=== PATIENT | female | born 1990 | race African-American/Black ===

== ENCOUNTER 2019-07-09 14:34 | Emergency (ER) | payer MEDICAID ==
[~2019-07-09] VITALS: Ht 152.4 cm; Wt 43.5 kg
[2019-07-09 14:51] VITALS: Ht 152.4 cm; Wt 43.5 kg
[2019-07-09 15:40] LABS: UA SPECIFIC GRAVITY >=1.030 (1.005-1.035); microscopic required? YES; urine erythrocyte 2+ (NEGATIVE)
[2019-07-09 15:43] LABS: PLATELET COUNT 419 x10^3mcL (130-400); RED CELL DISTRIBUTION WIDTH 20.1 % (11.5-14.5)
[2019-07-09 15:59] LABS: BAND NEUTROPHIL 1 % (0-10); BASOPHIL 0 % (0-2); MONOCYTE 7 % (0-7); SEGMENTED NEUTROPHILS 81 % (37-75); rbc morphology (normal/abnorm) ABNORMAL (NORMAL)
[2019-07-09 16:00] LABS: ALBUMIN 4.2 g/dL (3.4-5.0); ALKALINE PHOSPHATASE 37 U/L (46-116); ALT/SGPT 16 U/L (14-59); AST/SGOT 21 U/L (15-37); BILIRUBIN TOTAL 0.31 mg/dL (0.20-1.00); CARBON DIOXIDE 23.9 mmol/L (21-32); CHLORIDE SERUM 98 mmol/L (98-107); CREATININE SERUM 0.6 mg/dL (0.6-1.0); GFR1 > 60 mL/min; GLUCOSE SERUM 74 mg/dL (74-106); LIPASE 79 IU/L (73-393); POTASSIUM SERUM 3.5 mmol/L (3.5-5.1); SODIUM SERUM 133 mmol/L (136-145); TOTAL PROTEIN, SERUM 7.8 g/dL (6.4-8.2)
[2019-07-09 16:01] LABS: ovalocyte/elliptocyte 1+; tear drop cell (dacryocyte) 1+
[2019-07-09 16:02] LABS: PLATELET MORPHOLOGY PLATELETS INCREASED
[2019-07-09 16:05] LABS: CALCIUM 9.5 mg/dL (8.5-10.1)
[2019-07-09 17:21] VITALS: BP 110/62
== END 2019-07-09 17:21 | disposition home or self-care (01) ==
LOC: ED 14:34
PROVIDERS: Emergency Medicine
DX: O23.41 Unspecified infection of urinary tract in pregnancy, first trimester (principal); N93.9 Abnormal uterine and vaginal bleeding, unspecified; D64.9 Anemia, unspecified; Z3A.01 Less than 8 weeks gestation of pregnancy
CPT/HCPCS: 36415; Q0092